=== PATIENT | female | born 1945 | race Caucasian/White ===

== ENCOUNTER → 2018-10-26 | Outpatient (CLI) | payer MEDICARE ==
[~2018-10-26] MED LIST: ALBU90OI61 INH; ASPI81CH PO; CALCAVITD PO; CEPH500 PO; DIPH50 PO; FAMO40 PO; LISI20 PO; LISI5 PO
== END | disposition home or self-care (01) ==
LOC: LAB SHORT 13:51 → PLD 13:51
DX: C44.311 Basal cell carcinoma of skin of nose (principal); L82.1 Other seborrheic keratosis
CPT/HCPCS: 88305

== ENCOUNTER 2019-02-17 11:37 | Day surgery (SDC) | payer MEDICARE ==
[~2019-02-17] VITALS: Ht 165.1 cm; Wt 94.9 kg
[~2019-02-17 11:37] MED LIST changes: +ASCO500 PO; +THERA1 EACH PO
--- NOTE | 2019-02-17 13:09 | NUR ---
PATIENT GAVE PERMISSION FOR ME TO CARE FOR HER TODAY 02/17/19. History, Chart, Medications and Allergies reviewed before start of procedure.Patient confirms NPO status and agrees with scheduled surgery. Patient reports completing Chlorhexadine shower X2 prior to admission to hospital.Surgical site prepped with 2% Chlorhexidine cloth wipe. Lungs clear T/O to Auscultation.
--- NOTE | 2019-02-17 14:00 | NUR ---
STUDENT NURSE ASSISTING WITH CARE. AGREE WITH HER CHARTING
[2019-02-18 05:14] LABS: BASOPHILS ABSOLUTE AUTO 0.01 K/mm3 (0.00-0.23); BASOPHILS PERCENT AUTO 0 % (0-2); EOSINOPHILS PERCENT AUTO 0 % (0-6); Hematocrit 35.6 % (33.0-51.0); Hemoglobin 11.8 g/dL (11.5-16.0); IMMATURE GRAN ABSOLUTE AUTO 0.03 K/mm3 (0.00-0.10); IMMATURE GRAN PERCENT AUTO 0 % (0-1); LYMPHOCYTES ABSOLUTE AUTO 0.59 K/mm3 (0.84-5.20); LYMPHOCYTES PERCENT AUTO 5 % (21-46); MONOCYTES ABSOLUTE AUTO 1.14 K/mm3 (0.16-1.47); MONOCYTES PERCENT AUTO 10 % (4-13); Mean Corpuscular HGB 33.8 pg (26.0-34.0); Mean Corpuscular HGB Conc 33.1 g/dL (31.5-36.5); Mean Corpuscular Volume 102 fL (80-100); Mean Platelet Volume 10.5 fL (9.1-12.4); NEUTROPHILS ABSOLUTE AUTO 10.11 K/mm3 (1.96-9.15); NEUTROPHILS PERCENT AUTO 85 % (41-73); Platelet Count 199 K/mm3 (150-400); RDW Coefficient Variation 12.6 % (11.7-14.2); RDW Standard Deviation 47.4 fL (35.1-46.3); Red Blood Cell Count 3.49 M/mm3 (3.80-5.20); White Blood Cell Count 11.88 K/mm3 (4.00-11.30)
[2019-02-18 05:38] LABS: Anion Gap 5 mmol/L (6-16); Blood Urea Nitrogen 11 mg/dL (8-24); Bun/Creatinine Ratio 17.9 (12.0-20.0); CO2, Blood 26 mmol/L (21-32); Calcium, Blood 8.2 mg/dL (8.5-10.1); Chloride, Blood 109 mmol/L (98-108); Creatinine, Blood 0.61 mg/dL (0.40-1.00); Glomerular Filtration Rate >60 (60-); Glucose, Blood 134 mg/dL (70-99); Potassium, Blood 4.2 mmol/L (3.5-5.5); Sodium, Blood 140 mmol/L (136-145)
--- NOTE | 2019-02-18 07:59 | NUR ---
SUMMARY: POD [address] POOLE. VSS, AFEBRILE, ROOM AIR, TOLERATING PO INTAKE WELL AND PAIN WELL CONTROLLED WITH 10MG OXICODONE X2 THIS SHIFT. PT AMBULATES FOR BRP USING GB AND FWW WITH 1 ASSIST AND FOLLOWS DIRECTION WELL. ANTICIPATE PT/OT WITH CERTIFIED PEDIATRIC NURSE PRACTITIONER THIS DAY AND DC HOME.
[2019-02-18] MEDS ORDERED: Aspir 8181 MG PO (12:24)
[2019-02-18] MEDS ORDERED: Percocet 5-3251 EACH PO (12:26)
--- NOTE | 2019-02-18 15:34 | NUR ---
DISCHARGE EDUCATION DISCHARGE INSTRUCTIONS REVIEWED WITH PATIENT, PATIENTS QUESTIONS ANSWERED. RIGHT KNEE DRESSING CHANGED AND PATIENT INSTRUCTED ON PROCEDURE FOR [place] DRESSING CHANGE. PATIENT PRESCRIPTIONS GIVEN TO PATIENTS . PATIENT WILL DISCHARGE WHEN RETURNS WITH MEDS
--- NOTE | 2019-02-18 16:55 | NUR ---
1650 discharged home with
== END 2019-02-18 16:50 | disposition home or self-care (01) ==
LOC: ORSCMMR 11:37 → ORD 11:45 → ORSCMMR 13:00 → SURS 17:24 → ORSCMMR 02-18 16:50
PROVIDERS: Orthopaedic Surgery
PROC: 0SRC0JA Replacement of Right Knee Joint with Synthetic Substitute, Uncemented, Open Approach (ICD-10-PCS; principal; 2019-02-17 13:00)
DX: M17.11 Unilateral primary osteoarthritis, right knee (principal); Z01.818 Encounter for other preprocedural examination; I10 Essential (primary) hypertension; J45.909 Unspecified asthma, uncomplicated; Z79.899 Other long term (current) drug therapy; E66.9 Obesity, unspecified; Z68.34 Body mass index [BMI] 34.0-34.9, adult
CPT/HCPCS: 36415; 73560-RT; 80048; 85025; 86850; 86900; 86901; 88300; 97110; 97116; 97162; 97530; C1776; J0171; J0690; J1100; J1885; J2250; J2370; J2405; J2704; J2795; J3010; J7120

== ENCOUNTER → 2019-03-19 | Outpatient (CLI) | payer MEDICARE ==
[~2019-03-19] MED LIST changes: +Aspir 8181 MG PO; +Percocet 5-3251 EACH PO
== END | disposition home or self-care (01) ==
LOC: LAB EV 13:58 → LAB SHORT 13:58
DX: N39.0 Urinary tract infection, site not specified (principal)
CPT/HCPCS: 87077; 87086; 87186

== ENCOUNTER 2019-09-15 10:49 | Day surgery (SDC) | payer MEDICARE ==
[~2019-09-15] VITALS: Ht 170.2 cm; Wt 92.6 kg
[~2019-09-15 10:49] MED LIST changes: +HYDCHL25 PO
--- NOTE | 2019-09-15 11:35 | NUR ---
PT ADMITTED TO [facility]. AGREES WITH PLANNED SURGERY. LUNG SOUNDS CLEAR. LEFT WRIST IN DRESSING, ELEVATED ON PILLOW/
--- NOTE | 2019-09-15 12:13 | NUR ---
REPORT TO ECTOR GRANDA RN.
--- NOTE | 2019-09-15 15:27 | NUR ---
FROM PACU TO STEP VSS PATIENT SLEEPY BUT AWAKE. DENIES PAIN RECIEVED REPORT FROM ALEX DE LA FUENTE
--- NOTE | 2019-09-15 15:56 | NUR ---
CARE TURNED OVER TO SUDHAKAR ELYVA
--- NOTE | 2019-09-16 07:53 | NUR ---
09/16/19 0753 Autumn Mortensen VERIFICATIONS: EDIT CHART.
== END 2019-09-15 23:03 | disposition home or self-care (01) ==
LOC: ORSCMMR 10:49 → ORD 12:30 → ORSCMMR 12:30
PROVIDERS: Orthopaedic Surgery
PROC: 0PSJ04Z Reposition Left Radius with Internal Fixation Device, Open Approach (ICD-10-PCS; principal; 2019-09-15 12:30)
DX: S52.572A Other intraarticular fracture of lower end of left radius, initial encounter for closed fracture (principal); W18.30XA Fall on same level, unspecified, initial encounter; I10 Essential (primary) hypertension; J45.909 Unspecified asthma, uncomplicated; Z79.899 Other long term (current) drug therapy
CPT/HCPCS: C1713; J0690; J1100; J1885; J2405; J2704; J3010; J7120

== ENCOUNTER → 2021-08-19 | Outpatient (CLI) | payer MEDICARE | END | disposition home or self-care (01) | LOC: LAB SHORT 14:58 → LAB 14:58 | DX: L81.4 Other melanin hyperpigmentation (principal) | CPT/HCPCS: 88305 ==

== ENCOUNTER → 2022-02-17 | Outpatient (CLI) | payer MEDICARE, BC | END | disposition home or self-care (01) | LOC: PLD 14:48 → LAB SHORT 14:48 | DX: L30.8 Other specified dermatitis (principal) | CPT/HCPCS: 88305 ==

== ENCOUNTER 2023-06-11 11:17 | Day surgery (SDC) | payer MEDICARE, BC ==
[~2023-06-11] VITALS: Ht 170.2 cm; Wt 88.3 kg
[~2023-06-11 11:17] MED LIST changes: +ALBU90OI INH; +LOSA50 PO
[2023-06-11] MEDS ORDERED: KETO.5OPSO (11:32)
[2023-06-11] MEDS ORDERED: PREDNISOLO15 MG/5 ML (11:32)
--- NOTE | 2023-06-11 11:51 | NUR ---
06/11/23 1151 She Oleary CHARTED BY SAMMY BRUCE
[2023-06-11 13:59] VITALS: BP 112/72
--- NOTE | 2023-06-11 14:01 | NUR ---
06/11/23 1401 Maddie Hussein PT'S LEFT EYE KEPT OPENING DURING PROCEDURE REPORTED BY RN JAILYN DAO. PT'S EYE IS A BIT RED BUT NO COMPLAINTS OF PAIN AT THE PRESENT TIME. PT INSTRUCTED TO GET SOME SALINE EYE GTTS TO USE AT HOME TO KEEP HER EYE MOIST.
== END 2023-06-11 14:09 | disposition home or self-care (01) ==
LOC: ORSCSDS 11:17
PROVIDERS: Surgery
PROC: 0DBH8ZX Excision of Cecum, Via Natural or Artificial Opening Endoscopic, Diagnostic (ICD-10-PCS; principal; 2023-06-11 13:00)
DX: Z12.11 Encounter for screening for malignant neoplasm of colon (principal); R19.5 Other fecal abnormalities; D12.0 Benign neoplasm of cecum; K57.30 Diverticulosis of large intestine without perforation or abscess without bleeding; Z87.891 Personal history of nicotine dependence; I10 Essential (primary) hypertension; J45.909 Unspecified asthma, uncomplicated; Z79.899 Other long term (current) drug therapy; Z85.820 Personal history of malignant melanoma of skin
CPT/HCPCS: 88305; J2704; J7120

== ENCOUNTER 2023-09-22 11:36 | Day surgery (SDC) | payer MEDICARE, BC ==
[~2023-09-22] VITALS: Ht 170.2 cm; Wt 91.5 kg
[~2023-09-22 11:36] MED LIST changes: +KETO.5OPSO; +PREDNISOLO15 MG/5 ML
[2023-09-22 13:10] VITALS: BP 130/81
--- NOTE | 2023-09-22 13:17 | NUR ---
09/22/23 1317 YARI BORGES PT STATES EYE IS BURNING. DECLINES TYLENOL.
== END 2023-09-22 13:25 | disposition home or self-care (01) ==
LOC: ORSCSDS 11:36
PROVIDERS: Student in an Organized Health Care Education/Training Program
PROC: 08RJ3JZ Replacement of Right Lens with Synthetic Substitute, Percutaneous Approach (ICD-10-PCS; principal; 2023-09-22 13:00)
DX: H25.13 Age-related nuclear cataract, bilateral (principal); I10 Essential (primary) hypertension; J45.909 Unspecified asthma, uncomplicated; Z87.891 Personal history of nicotine dependence; Z85.820 Personal history of malignant melanoma of skin; Z79.899 Other long term (current) drug therapy
CPT/HCPCS: J2250; J3010; J7040; V2632

== ENCOUNTER 2023-10-13 10:19 | Day surgery (SDC) | payer MEDICARE, BC ==
[~2023-10-13] VITALS: Ht 170.2 cm; Wt 91.9 kg
--- NOTE | 2023-10-13 11:47 | NUR ---
10/13/23 1147 Elissa Roth LEFT EYE IDENTIFIED CORRECT EYE VERBALLY BY PATIENT AND PER CONSCENT FORM. PROPARACAINE PLACED IN LEFT EYE AT 1132. PLEDGET PLACED AT 1134 COVERED WITH GAUZE AND TAPE. CALL LIGHT WITHIN REACH.
[2023-10-13 12:43] VITALS: BP 117/80
== END 2023-10-13 12:47 | disposition home or self-care (01) ==
LOC: ORSCSDS 10:19
PROVIDERS: Student in an Organized Health Care Education/Training Program
PROC: 08RK3JZ Replacement of Left Lens with Synthetic Substitute, Percutaneous Approach (ICD-10-PCS; principal; 2023-10-13 12:00)
DX: H25.12 Age-related nuclear cataract, left eye (principal); Z96.1 Presence of intraocular lens; I10 Essential (primary) hypertension; J45.909 Unspecified asthma, uncomplicated; E66.9 Obesity, unspecified; Z68.32 Body mass index [BMI] 32.0-32.9, adult; Z87.891 Personal history of nicotine dependence; H35.30 Unspecified macular degeneration; Z79.899 Other long term (current) drug therapy
CPT/HCPCS: J2250; J3010; J7040; V2632

== ENCOUNTER 2025-04-10 14:06 | Emergency (ER) | payer OTHER ==
[~2025-04-10] VITALS: Ht 170.2 cm; Wt 81.7 kg
[2025-04-10 14:31] VITALS: BP 129/80
[2025-04-10] MEDS ORDERED: Rabies Vaccine (Pcec)/Pf 1 mL 2.5 Unit Kit IM ONE (14:40)
== END 2025-04-10 15:16 | disposition home or self-care (01) ==
LOC: ER 14:06
DX: Z23 Encounter for immunization (principal); Z88.2 Allergy status to sulfonamides; Z88.5 Allergy status to narcotic agent; Z91.040 Latex allergy status; Z79.899 Other long term (current) drug therapy; Z87.891 Personal history of nicotine dependence
CPT/HCPCS: 90471; 99281

== ENCOUNTER 2025-04-17 13:16 | Emergency (ER) | payer OTHER ==
[~2025-04-17] VITALS: Ht 170.2 cm; Wt 79.4 kg
[2025-04-17 14:00] VITALS: BP 152/87
[2025-04-17] MEDS ORDERED: Rabies Vaccine (Pcec)/Pf 1 mL 2.5 Unit Kit IM ONE (14:00)
== END 2025-04-17 15:13 | disposition home or self-care (01) ==
LOC: ER 13:16
DX: Z23 Encounter for immunization (principal); Z20.3 Contact with and (suspected) exposure to rabies; Z87.891 Personal history of nicotine dependence; Z88.2 Allergy status to sulfonamides; Z88.5 Allergy status to narcotic agent; Z91.040 Latex allergy status; Z79.899 Other long term (current) drug therapy
CPT/HCPCS: 90471; 99281-25